=== PATIENT | female | born 1965 | race Caucasian/White ===

== ENCOUNTER 2017-01-15 23:46 | Emergency (ER) | payer BC ==
[~2017-01-15] VITALS: Ht 162.6 cm; Wt 60.3 kg
[2017-01-16] MEDS ORDERED: FLUORESCEIN SODIUM 1 MG STRIP OP ONE (00:45)
[2017-01-16] MEDS ORDERED: TETRACAINE HCL 0.5% OPHT DROP 2 ML BOTTLE OP ONE (00:45)
[2017-01-16] MEDS ORDERED: TETRACAINE HCL 0.5% OPHT DROP 2 ML BOTTLE ONE (00:46)
[2017-01-16] MEDS ORDERED: FLUORESCEIN SODIUM 1 MG STRIP ONE (00:46)
[2017-01-16] MEDS ORDERED: SODIUM/POT/SOD CHL OPHT WASH 120 ML BOTTLE OP ONE (01:00)
[2017-01-16] MEDS ORDERED: SODIUM/POT/SOD CHL OPHT WASH 120 ML BOTTLE ONE (01:11)
--- NOTE | 2017-01-16 01:25 | NUR ---
Pt c/o pain and FB sensation to R. eye. Pt seen by Dr. Cerda and evaluation completed. Pt stable for discharge per Dr. Cerda. Pt given ACI. Pt verbalized understanding of dc instructions. Pt ambulated out of ER with steady gait and ride home.
[2017-01-16 01:45] VITALS: BP 103/57
== END 2017-01-16 01:25 | disposition home or self-care (01) ==
LOC: ER 23:53
DX: S05.01XA Injury of conjunctiva and corneal abrasion without foreign body, right eye, initial encounter (principal); E11.9 Type 2 diabetes mellitus without complications; X58.XXXA Exposure to other specified factors, initial encounter; Y93.89 Activity, other specified; Y92.89 Other specified places as the place of occurrence of the external cause; Y99.8 Other external cause status
CPT/HCPCS: 70030-TC; A4663